=== PATIENT | female | born 1960 | race Caucasian/White ===

== ENCOUNTER → 2019-07-24 | Outpatient (CLI) | payer OTHER | LOC: M.CT 08:28 | DX: Z13.6 Encounter for screening for cardiovascular disorders (principal); E78.00 Pure hypercholesterolemia, unspecified; I25.10 Atherosclerotic heart disease of native coronary artery without angina pectoris ==

== ENCOUNTER → 2019-07-24 | Outpatient (CLI) | payer OTHER | LOC: M.RAD 07-07 11:34 | DX: Z12.31 Encounter for screening mammogram for malignant neoplasm of breast (principal) ==